=== PATIENT | female | born 1995 | race Caucasian/White ===

== ENCOUNTER → 2022-08-11 | Outpatient (CLI) | payer OTHER ==
--- NOTE | 2022-08-11 14:44 | Diagnostic Imaging Report ---
INDICATION: survey. TECHNIQUE: Multiple real-time grayscale images were obtained over the gravid uterus. COMPARISON: None FINDINGS: There is a single live fetus in a transverse presentation with the head to the maternal right. heart rate was recorded at 146 bpm. Placenta is anterior. No previa is detected. Amniotic fluid volume is 15.1 cm. Cervical length is 4.7 cm. kidneys, bladder and stomach are unremarkable. brain is unremarkable. There is a four-chamber heart. There is a three-vessel cord with normal insertion. spine is unremarkable. Biometrical measurements are as follows: Biparietal 4.84 cm, age 20 weeks 5 days. Head circumference 18.48 cm, age 20 weeks 6 days. Abdominal circumference 15.84 cm, age 21 weeks 0 days. Femur length 3.45 cm, age 21 weeks 0 days. Sonographic estimate age: 21 weeks 0 days. Sonographic estimated date of delivery: 12/22/2022. Estimated Weight: 385 gm (+/- 56 gm). LMP percentile: 47%. heart rate: 146 beats per minute. number: 1 of 1. IMPRESSION: Single live IUP 21 weeks 0 days gestational age. Estimated date of confinement sonographically is 12/22/2022. Dictated by: Dictated on workstation # [id number]
== END ==
LOC: RAD 12:35
PROVIDERS: ATTEND Nurse Practitioner Women's Health
DX: Z34.02 Encounter for supervision of normal first pregnancy, second trimester (principal); Z3A.21 21 weeks gestation of pregnancy
CPT/HCPCS: 76805

== ENCOUNTER 2022-12-24 04:01 | Inpatient (IN) | payer OTHER ==
[2022-12-24] VITALS (90 sets, daily range): BP systolic 108–147; BP diastolic 57–94
[~2022-12-24] VITALS: Ht 165.1 cm; Wt 76.0 kg
[2022-12-24] MEDS ORDERED: LACTATED RINGERS 1,000 ML 500 ML IV PRN (06:15)
[2022-12-24] MEDS ORDERED: MINERAL OIL 30 ML UDC TOP PRN (06:15)
[2022-12-24 07:03] LABS: BASOPHILS # (AUTO) 0.1 10^3/uL (0.0-0.1); BASOPHILS % (AUTO) 1 % (0-10); EOSINOPHILS % (AUTO) 0 % (0-10); HEMATOCRIT 34 % (35-52); HEMOGLOBIN 11.3 g/dL (11.5-16.0); LYMPHOCYTES # (AUTO) 1.6 10^3/uL (1.0-4.0); LYMPHOCYTES % (AUTO) 13 % (12-44); MEAN CORPUSCULAR HEMOGLOBIN 28 pg (25-34); MEAN CORPUSCULAR HGB CONC 33 g/dL (32-36); MEAN CORPUSCULAR VOLUME 83 fL (80-99); MEAN PLATELET VOLUME 10.3 fL (9.0-12.2); MONOCYTES # (AUTO) 0.9 10^3/uL (0.0-1.0); MONOCYTES % (AUTO) 7 % (0-12); NEUTROPHILS # (AUTO) 9.4 10^3/uL (1.8-7.8); NEUTROPHILS % (AUTO) 79 % (42-75); PLATELET COUNT 263 10^3/uL (130-400)
[2022-12-24] MEDS: LACTATED RINGERS 1,000 ML 1,000 ML IV SCH ×3 (07:04→22:54)
[2022-12-24] MEDS ORDERED: fentaNYL 2 mcg/ml BUPIVA 0.125 100 ML ONE (07:13)
[2022-12-24] MEDS ORDERED: fentaNYL INJECTION 100 MCG/2 ML VIAL ONE (07:46)
[2022-12-24] MEDS: fentaNYL 2 mcg/ml BUPIVA 0.125 100 ML EPI SCH ×3 (08:05→22:09)
[2022-12-24] MEDS ORDERED: METOCLOPRAMIDE INJ 10 MG/2 ML IV PRN (08:30)
[2022-12-24] MEDS ORDERED: diphenhydrAMINE INJ 50 MG/ML VIAL IV PRN (08:30)
[2022-12-24] MEDS ORDERED: NALOXONE 0.4 MG/ML 1 ML VIAL IV PRN ×2 (08:30)
[2022-12-24] MEDS ORDERED: LACTATED RINGERS 1,000 ML 1,000 ML IV SCH (08:30)
--- NOTE | 2022-12-24 09:22 | History & Physical-OB ---
OB - Chief Complaint & HPI Date/Time Date of Admission: Date of Admission: Dec 24, 2022 at 05:22 Date seen by a Provider: Dec 24, 2022 Time Seen by a Provider: 08:00 Chief Complaint/History OB-Reason for Admission/Chief: Onset of Labor Hx : 1 Hx Para: 0 Expected Date of Delivery: Dec 23, 2022 Gestational Age in Weeks: 40 Gestational Age in Days: 1 Allergies and Home Medications Allergies Coded Allergies: Penicillins (Verified Allergy, Unknown, 12/24/22) Patient Home Medication List Home Medication List Reviewed: Yes OB - History Hx of Present Care: Yes Obstetrical Complications: None Medical Complications: None Information Induced Hypertension: No Maternal Gestational Diabetes: No Obstetrical History Hx : 1 Hx Para: 0 Patient Past Medical History Neg Neg Social History/Family History Alcohol Use: Denies Use Recreational Drug Use: No 2nd Hand Smoke Exposure: No Immunizations Influenza Vaccine Up-to-Date: No; Not Current COVID19 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[employer] Hepatitis A: Yes Hepatitis B: Yes OB - Admission Exam Physical Exam Vitals: Vital Signs 12/24/22 12/24/22 06:05 08:20 Temp 36.8 Pulse 89 Resp 18 B/P (MAP) 122/75 (91) Pulse Ox 97 O2 Delivery Room Air HEENT: NCAT Heart: Rhythm Normal Lungs: Clear Abdomen: Gravid Extremities: Normal Reflexes: Normal Cervical Dilatation: 5cm Effacement: 75% Station: -3 Membranes: Intact Heart Rate: 130's Accelerations: Accelerations Present Decelerations: Variable Decelerations Short Term Variability: Present Long-Term Variability: Average (6-25) Contractions on Admission: < 5 Minutes Apart Intensity: Firm Labs Laboratory Tests Test 12/24/22 06:48 Range/Units White Blood Count 12.0 H 4.3-11.0 10^3/uL Red Blood Count 4.11 3.80-5.11 10^6/uL Hemoglobin 11.3 L 11.5-16.0 g/dL Hematocrit 34 L 35-52 % Mean Corpuscular Volume 83 80-99 fL Mean Corpuscular Hemoglobin 28 25-34 pg Mean Corpuscular Hemoglobin Concent 33 32-36 g/dL Red Cell Distribution Width 12.6 10.0-14.5 % Platelet Count 263 130-400 10^3/uL Mean Platelet Volume 10.3 9.0-12.2 fL Immature Granulocyte % (Auto) 1 % Neutrophils (%) (Auto) 79 H 42-75 % Lymphocytes (%) (Auto) 13 12-44 % Monocytes (%) (Auto) 7 0-12 % Eosinophils (%) (Auto) 0 0-10 % Basophils (%) (Auto) 1 0-10 % Neutrophils # (Auto) 9.4 H 1.8-7.8 10^3/uL Lymphocytes # (Auto) 1.6 1.0-4.0 10^3/uL Monocytes # (Auto) 0.9 0.0-1.0 10^3/uL Eosinophils # (Auto) 0.0 0.0-0.3 10^3/uL Basophils # (Auto) 0.1 0.0-0.1 10^3/uL Immature Granulocyte # (Auto) 0.1 0.0-0.1 10^3/uL Syphilis Total Antibody Negative Negative OB - Assessment/Plan/Diagnosis Assessment Assessment: active labor Admission Dx IUP at 40w1d. GBS neg. Admission Status: Inpatient Order (span 2 midnights) Reason for Inpatient Admission: IUP at 40w1d. GBS neg. Plan Plan: Expectant Management SHELBY CABRAL DO Dec 24, 2022 09:22
[2022-12-24] MEDS: CATHETER FLUSH 10 ML SYR IV SCH ×2 (14:00→21:24)
[2022-12-24] MEDS ORDERED: ACETAMINOPHEN 500 MG TABLET PO ONE (18:15)
[2022-12-24] MEDS ORDERED: ACETAMINOPHEN 500 MG TABLET ONE (18:57)
[2022-12-24] MEDS: ONDANSETRON INJECTION 4 MG/2 ML (SDV) IV PRN ×2 (19:03→22:56)
[2022-12-24] MEDS ORDERED: OXYTOCIN DRIP PRE-MIX 500 ML IV ONE (19:14)
[2022-12-24] MEDS: OXYTOCIN DRIP PRE-MIX 500 ML IV SCH (19:18)
--- NOTE | 2022-12-24 19:26 | Labor Progress Note ---
Labor Progress Note Labor Progress Note Time Seen by Provider: 19:00 Subjective: Pt comfortable with epidural in place. +Nausea - RN just gave Zofran. SROM around 15:00. Mild Temp earlier - Tylenol po ordered - will hold until nausea improves. Will give IV if need be. Objective: Cervical exam: Presentation: vertex heart tones: Cat 1 with occasional variable decel. Tocometer: 4 ctx/10 minutes. IUPC placed and she has <200MVUs. Assessment/Plan: Minimal progress throughout the day. +SROM a few hours ago. She declined AROM and Pitocin earlier. She is agreeable to Pitocin now since the MVUs are not adequate. She has a prominate pubic bone, which may make it difficult for the head to descend. This was discussed with the patient and her partner. Anticipate vaginal delivery. Vitals - Labs Vital Signs - I&O Vital Signs Date Time Temp Pulse Resp B/P (MAP) Pulse Ox O2 Delivery O2 Flow Rate FiO2 12/24/22 18:20 137 18 109/63 (78) 95 Room Air 12/24/22 18:07 112 18 110/71 (84) 96 Room Air 12/24/22 17:50 87 18 120/76 (91) 95 Room Air 12/24/22 17:34 97 18 111/67 (82) 94 Room Air 12/24/22 17:19 94 18 115/72 (86) 97 Room Air 12/24/22 17:04 101 18 127/92 (104) 96 Room Air 12/24/22 16:57 37.9 12/24/22 16:50 100 18 125/87 (100) 98 Room Air 12/24/22 16:35 95 18 118/87 (97) 97 Room Air 12/24/22 16:20 101 18 124/72 (89) 98 Room Air 12/24/22 16:05 87 18 131/79 (96) 98 Room Air 12/24/22 15:50 81 18 115/84 (94) 98 Room Air 12/24/22 15:34 105 18 113/74 (87) 97 Room Air 12/24/22 15:20 96 18 122/80 (94) 97 Room Air 12/24/22 15:06 82 18 114/79 (91) 98 Room Air 12/24/22 15:01 37.5 12/24/22 14:50 86 18 120/74 (89) 98 Room Air 12/24/22 14:34 92 18 118/75 (89) 98 Room Air 12/24/22 14:20 90 18 108/61 (77) 98 Room Air 12/24/22 14:04 100 18 112/66 (81) 98 Room Air 12/24/22 13:50 105 18 117/74 (88) 98 Room Air 12/24/22 13:34 90 18 109/70 (83) 98 Room Air 12/24/22 13:20 112 18 128/77 (94) 98 Room Air 12/24/22 13:04 94 18 117/77 (90) 97 Room Air 12/24/22 12:49 89 18 118/77 (91) 97 Room Air 12/24/22 12:35 92 18 118/78 (91) 98 Room Air 12/24/22 12:20 84 18 119/81 (94) 98 Room Air 12/24/22 12:07 37.4 12/24/22 12:05 115 18 118/78 (91) 98 Room Air 12/24/22 11:49 100 18 118/81 (93) 97 Room Air 12/24/22 11:34 88 18 124/78 (93) 98 Room Air 12/24/22 11:20 104 18 117/81 (93) 98 Room Air 12/24/22 11:07 86 18 110/78 (89) 97 Room Air 12/24/22 10:58 37.6 12/24/22 10:51 100 18 117/78 (91) 96 Room Air 12/24/22 10:36 89 18 109/69 (82) 98 Room Air 12/24/22 10:20 83 18 108/57 (74) 96 Room Air 12/24/22 10:04 86 18 114/66 (82) 96 Room Air 12/24/22 09:35 84 18 117/73 (88) 96 Room Air 12/24/22 09:21 120 18 124/83 (97) 94 Room Air 12/24/22 09:15 37.6 12/24/22 09:05 79 18 120/79 (93) 98 Room Air 12/24/22 08:50 72 18 131/80 (97) 98 Room Air 12/24/22 08:34 93 18 136/77 (96) 99 Room Air 12/24/22 08:30 134 18 147/92 (110) 98 Room Air 12/24/22 08:20 89 18 122/75 (91) 97 Room Air 12/24/22 08:14 100 18 109/73 (85) 99 Room Air 12/24/22 08:11 105 18 115/74 (88) Room Air 12/24/22 08:08 102 18 114/74 (87) 98 Room Air 12/24/22 08:05 93 20 119/79 (92) 99 Room Air 12/24/22 08:02 107 20 119/81 (94) 99 Room Air 12/24/22 07:59 75 20 119/81 (94) 99 Room Air 12/24/22 07:56 86 20 121/87 (98) 99 Room Air 12/24/22 07:53 94 20 130/92 (105) 99 Room Air 12/24/22 07:47 72 20 137/83 (101) Room Air 12/24/22 07:28 69 20 125/64 (84) Room Air 12/24/22 07:06 67 20 129/87 (101) Room Air 12/24/22 06:45 73 16 129/84 (99) Room Air 12/24/22 06:25 88 16 119/81 (94) Room Air 12/24/22 06:05 36.8 102 16 118/82 (94) Room Air 12/24/22 05:45 90 16 111/80 (90) Room Air 12/24/22 05:25 94 16 119/82 (94) Room Air 12/24/22 05:05 104 16 112/82 (92) Room Air 12/24/22 04:37 36.9 117 18 125/72 97 Room Air Labs Laboratory Tests 12/24/22 06:48: White Blood Count 12.0H, Red Blood Count 4.11, Hemoglobin 11.3L, Hematocrit 34L, Mean Corpuscular Volume 83, Mean Corpuscular Hemoglobin 28, Mean Corpuscular Hemoglobin Concent 33, Red Cell Distribution Width 12.6, Platelet Count 263, Mean Platelet Volume 10.3, Immature Granulocyte % (Auto) 1, Neutrophils (%) (Auto) 79H, Lymphocytes (%) (Auto) 13, Monocytes (%) (Auto) 7, Eosinophils (%) (Auto) 0, Basophils (%) (Auto) 1, Neutrophils # (Auto) 9.4H, Lymphocytes # (Auto) 1.6, Monocytes # (Auto) 0.9, Eosinophils # (Auto) 0.0, Basophils # (Auto) 0.1, Immature Granulocyte # (Auto) 0.1, Syphilis Total Antibody Negative SHELBY CABRAL DO Dec 24, 2022 19:25
--- NOTE | 2022-12-24 23:27 | Labor Progress Note ---
Labor Progress Note Labor Progress Note Time Seen by Provider: 23:15 Subjective: Pt in pain and vomiting. Objective: Cervical exam: heart tones: Cat 1 Tocometer: 4 ctx/10 minutes. Not quite 200MVUs. Pitocin at 14mU. Assessment/Plan: Continue increasing Pitocin as tolerated. Epidural bolus prn. Zoftan IV given. Anticipate vaginal delivery. Vitals - Labs Vital Signs - I&O Vital Signs Date Time Temp Pulse Resp B/P (MAP) Pulse Ox O2 Delivery O2 Flow Rate FiO2 12/24/22 21:30 98 18 129/92 (104) 99 Room Air 12/24/22 21:15 37.0 81 18 135/88 (104) 98 Room Air 12/24/22 21:00 81 18 124/79 (94) 99 Room Air 12/24/22 20:45 88 18 118/76 (90) 93 Room Air 12/24/22 20:30 98 18 127/93 (104) 100 Room Air 12/24/22 20:15 93 18 128/82 (97) 100 Room Air 12/24/22 20:05 101 18 127/86 (100) 99 Room Air 12/24/22 20:02 96 18 129/87 (101) 99 Room Air 12/24/22 19:57 86 18 119/75 (90) 98 Room Air 12/24/22 19:53 99 18 123/81 (95) 99 Room Air 12/24/22 19:47 84 18 123/81 (95) 98 Room Air 12/24/22 19:43 97 18 115/74 (88) 97 Room Air 12/24/22 19:38 82 18 121/86 (98) 98 Room Air 12/24/22 19:28 36.8 109 18 115/79 (91) 97 Room Air 12/24/22 19:06 104 18 136/82 (100) 98 Room Air 12/24/22 18:50 75 18 114/72 (86) 97 Room Air 12/24/22 18:36 75 18 121/79 (93) 96 Room Air 12/24/22 18:20 137 18 109/63 (78) 95 Room Air 12/24/22 18:07 112 18 110/71 (84) 96 Room Air 12/24/22 17:50 87 18 120/76 (91) 95 Room Air 12/24/22 17:34 97 18 111/67 (82) 94 Room Air 12/24/22 17:19 94 18 115/72 (86) 97 Room Air 12/24/22 17:04 101 18 127/92 (104) 96 Room Air 12/24/22 16:57 37.9 12/24/22 16:50 100 18 125/87 (100) 98 Room Air 12/24/22 16:35 95 18 118/87 (97) 97 Room Air 12/24/22 16:20 101 18 124/72 (89) 98 Room Air 12/24/22 16:05 87 18 131/79 (96) 98 Room Air 12/24/22 15:50 81 18 115/84 (94) 98 Room Air 12/24/22 15:34 105 18 113/74 (87) 97 Room Air 12/24/22 15:20 96 18 122/80 (94) 97 Room Air 12/24/22 15:06 82 18 114/79 (91) 98 Room Air 12/24/22 15:01 37.5 12/24/22 14:50 86 18 120/74 (89) 98 Room Air 12/24/22 14:34 92 18 118/75 (89) 98 Room Air 12/24/22 14:20 90 18 108/61 (77) 98 Room Air 12/24/22 14:04 100 18 112/66 (81) 98 Room Air 12/24/22 13:50 105 18 117/74 (88) 98 Room Air 12/24/22 13:34 90 18 109/70 (83) 98 Room Air 12/24/22 13:20 112 18 128/77 (94) 98 Room Air 12/24/22 13:04 94 18 117/77 (90) 97 Room Air 12/24/22 12:49 89 18 118/77 (91) 97 Room Air 12/24/22 12:35 92 18 118/78 (91) 98 Room Air 12/24/22 12:20 84 18 119/81 (94) 98 Room Air 12/24/22 12:07 37.4 12/24/22 12:05 115 18 118/78 (91) 98 Room Air 12/24/22 11:49 100 18 118/81 (93) 97 Room Air 12/24/22 11:34 88 18 124/78 (93) 98 Room Air 12/24/22 11:20 104 18 117/81 (93) 98 Room Air 12/24/22 11:07 86 18 110/78 (89) 97 Room Air 12/24/22 10:58 37.6 12/24/22 10:51 100 18 117/78 (91) 96 Room Air 12/24/22 10:36 89 18 109/69 (82) 98 Room Air 12/24/22 10:20 83 18 108/57 (74) 96 Room Air 12/24/22 10:04 86 18 114/66 (82) 96 Room Air 12/24/22 09:35 84 18 117/73 (88) 96 Room Air 12/24/22 09:21 120 18 124/83 (97) 94 Room Air 12/24/22 09:15 37.6 12/24/22 09:05 79 18 120/79 (93) 98 Room Air 12/24/22 08:50 72 18 131/80 (97) 98 Room Air 12/24/22 08:34 93 18 136/77 (96) 99 Room Air 12/24/22 08:30 134 18 147/92 (110) 98 Room Air 12/24/22 08:20 89 18 122/75 (91) 97 Room Air 12/24/22 08:14 100 18 109/73 (85) 99 Room Air 12/24/22 08:11 105 18 115/74 (88) Room Air 12/24/22 08:08 102 18 114/74 (87) 98 Room Air 12/24/22 08:05 93 20 119/79 (92) 99 Room Air 12/24/22 08:02 107 20 119/81 (94) 99 Room Air 12/24/22 07:59 75 20 119/81 (94) 99 Room Air 12/24/22 07:56 86 20 121/87 (98) 99 Room Air 12/24/22 07:53 94 20 130/92 (105) 99 Room Air 12/24/22 07:47 72 20 137/83 (101) Room Air 12/24/22 07:28 69 20 125/64 (84) Room Air 12/24/22 07:06 67 20 129/87 (101) Room Air 12/24/22 06:45 73 16 129/84 (99) Room Air 12/24/22 06:25 88 16 119/81 (94) Room Air 12/24/22 06:05 36.8 102 16 118/82 (94) Room Air 12/24/22 05:45 90 16 111/80 (90) Room Air 12/24/22 05:25 94 16 119/82 (94) Room Air 12/24/22 05:05 104 16 112/82 (92) Room Air 12/24/22 04:37 36.9 117 18 125/72 97 Room Air Labs Laboratory Tests 12/24/22 06:48: White Blood Count 12.0H, Red Blood Count 4.11, Hemoglobin 11.3L, Hematocrit 34L, Mean Corpuscular Volume 83, Mean Corpuscular Hemoglobin 28, Mean Corpuscular Hemoglobin Concent 33, Red Cell Distribution Width 12.6, Platelet Count 263, Mean Platelet Volume 10.3, Immature Granulocyte % (Auto) 1, Neutrophils (%) (Auto) 79H, Lymphocytes (%) (Auto) 13, Monocytes (%) (Auto) 7, Eosinophils (%) (Auto) 0, Basophils (%) (Auto) 1, Neutrophils # (Auto) 9.4H, Lymphocytes # (Auto) 1.6, Monocytes # (Auto) 0.9, Eosinophils # (Auto) 0.0, Basophils # (Auto) 0.1, Immature Granulocyte # (Auto) 0.1, Syphilis Total Antibody Negative SHELBY CABRAL DO Dec 24, 2022 23:27
[2022-12-25] VITALS (29 sets, daily range): BP systolic 106–140; BP diastolic 55–97
[2022-12-25] MEDS ORDERED: LIDOCAINE 2% w/EPI 1:200,000 20 ML VIAL ONE (01:08)
[2022-12-25] MEDS: OXYTOCIN DRIP PRE-MIX 500 ML IV SCH ×3 (01:51→02:16)
[2022-12-25] MEDS ORDERED: DIBUCAINE 1% OINTMENT 28 GM TUBE TOP PRN (03:00)
[2022-12-25] MEDS ORDERED: WITCH HAZEL(TUCKS) 40 EA JAR TOP PRN (03:00)
[2022-12-25] MEDS ORDERED: Tetanus/Diphtheria/Pertussis (Acell) ADULT Vaccine 0.5 ML IM ONE (03:00)
[2022-12-25] MEDS ORDERED: BENZOCAINE/MENTHOL (DERMOPLAST) 56 ML CAN TP PRN (03:00)
--- NOTE | 2022-12-25 03:30 | OB Labor & Delivery Record ---
Vag Delivery Note Vag Delivery Note Date of Delivery: 12/25/22 Preoperative Diagnosis: Caitlyn Dunn is a (27 /Para 1 / 0, Gestational Age (wks)40 Postoperative Diagnosis: Same Surgeon: HAY NGUYEN Rand Cementer: Dr. Epperson Anesthesia: Epidural Delivery Type: Spontaneous vaginal Findings: Viable female infant, apgars 2, 7, 8, weight 3715g Lacerations: 2nd degree with vaginal extension Intact placenta with 3 vessel cord. No nuchal cord, body cord or shoulder dystocia Estimated Blood Loss: 200 ml Complications: None Condition: Stable Description of Procedure: The patient is a 27 year old female who presented in spontaneous labor. She was admitted and informed consent was obtained. Her labor course was unremarkable. She progressed to complete dilatation and began to push. She was then set up for delivery. The infant's head was delivered atraumatically in the KATELYN position. The shoulders and remainder of the 's body were then delivered without difficulty. Upon delivery, the infant was vigorous and placed on maternal chest and the mouth and nares were bulb suctioned. After a delay cord was doubly clamped and cut and the remained on maternal chest. An intact placenta with 3-vessel cord delivered via Marianne and there was found to be minimal bleeding.~ Vigorous fundal massage was performed and the fundus was found to be firm. IV oxytocin was given. Examination of the vagina and perineum revealed a 2nd degree laceration repaired in the usual fashion with 3-0 vicryl rapide suture. Following the repair, sponge, instrument and needle counts were correct. Mom and baby were both in stable condition in the labor suite. Vitals - Labs Vital Signs - I&O Vital Signs Date Time Temp Pulse Resp B/P (MAP) Pulse Ox O2 Delivery O2 Flow Rate FiO2 12/25/22 00:29 38.4 12/25/22 00:00 79 18 127/76 (93) 98 Room Air 12/24/22 23:55 74 18 126/77 (93) 99 Room Air 12/24/22 23:50 100 18 135/79 (97) 99 Room Air 12/24/22 23:45 86 18 132/89 (103) 99 Room Air 12/24/22 23:40 80 18 121/72 (88) 99 Room Air 12/24/22 23:35 84 18 119/74 (89) 99 Room Air 12/24/22 23:30 100 18 123/84 (97) 99 Room Air 12/24/22 23:27 37.3 106 18 123/84 (97) 99 Room Air 12/24/22 23:15 86 18 141/94 (110) 99 Room Air 12/24/22 23:00 96 18 129/84 (99) 99 Room Air 12/24/22 22:45 97 18 129/84 (99) 98 Room Air 12/24/22 22:30 106 18 134/93 (107) 97 Room Air 12/24/22 22:15 95 18 133/89 (104) 96 Room Air 12/24/22 22:00 84 18 128/89 (102) 97 Room Air 12/24/22 21:45 94 18 135/92 (106) 97 Room Air 12/24/22 21:30 98 18 129/92 (104) 99 Room Air 12/24/22 21:15 37.0 81 18 135/88 (104) 98 Room Air 12/24/22 21:00 81 18 124/79 (94) 99 Room Air 12/24/22 20:45 88 18 118/76 (90) 93 Room Air 12/24/22 20:30 98 18 127/93 (104) 100 Room Air 12/24/22 20:15 93 18 128/82 (97) 100 Room Air 12/24/22 20:05 101 18 127/86 (100) 99 Room Air 12/24/22 20:02 96 18 129/87 (101) 99 Room Air 12/24/22 19:57 86 18 119/75 (90) 98 Room Air 12/24/22 19:53 99 18 123/81 (95) 99 Room Air 12/24/22 19:47 84 18 123/81 (95) 98 Room Air 12/24/22 19:43 97 18 115/74 (88) 97 Room Air 12/24/22 19:38 82 18 121/86 (98) 98 Room Air 12/24/22 19:28 36.8 109 18 115/79 (91) 97 Room Air 12/24/22 19:06 104 18 136/82 (100) 98 Room Air 12/24/22 18:50 75 18 114/72 (86) 97 Room Air 12/24/22 18:36 75 18 121/79 (93) 96 Room Air 12/24/22 18:20 137 18 109/63 (78) 95 Room Air 12/24/22 18:07 112 18 110/71 (84) 96 Room Air 12/24/22 17:50 87 18 120/76 (91) 95 Room Air 12/24/22 17:34 97 18 111/67 (82) 94 Room Air 12/24/22 17:19 94 18 115/72 (86) 97 Room Air 12/24/22 17:04 101 18 127/92 (104) 96 Room Air 12/24/22 16:57 37.9 12/24/22 16:50 100 18 125/87 (100) 98 Room Air 12/24/22 16:35 95 18 118/87 (97) 97 Room Air 12/24/22 16:20 101 18 124/72 (89) 98 Room Air 12/24/22 16:05 87 18 131/79 (96) 98 Room Air 12/24/22 15:50 81 18 115/84 (94) 98 Room Air 12/24/22 15:34 105 18 113/74 (87) 97 Room Air 12/24/22 15:20 96 18 122/80 (94) 97 Room Air 12/24/22 15:06 82 18 114/79 (91) 98 Room Air 12/24/22 15:01 37.5 12/24/22 14:50 86 18 120/74 (89) 98 Room Air 12/24/22 14:34 92 18 118/75 (89) 98 Room Air 12/24/22 14:20 90 18 108/61 (77) 98 Room Air 12/24/22 14:04 100 18 112/66 (81) 98 Room Air 12/24/22 13:50 105 18 117/74 (88) 98 Room Air 12/24/22 13:34 90 18 109/70 (83) 98 Room Air 12/24/22 13:20 112 18 128/77 (94) 98 Room Air 12/24/22 13:04 94 18 117/77 (90) 97 Room Air 12/24/22 12:49 89 18 118/77 (91) 97 Room Air 12/24/22 12:35 92 18 118/78 (91) 98 Room Air 12/24/22 12:20 84 18 119/81 (94) 98 Room Air 12/24/22 12:07 37.4 12/24/22 12:05 115 18 118/78 (91) 98 Room Air 12/24/22 11:49 100 18 118/81 (93) 97 Room Air 12/24/22 11:34 88 18 124/78 (93) 98 Room Air 12/24/22 11:20 104 18 117/81 (93) 98 Room Air 12/24/22 11:07 86 18 110/78 (89) 97 Room Air 12/24/22 10:58 37.6 12/24/22 10:51 100 18 117/78 (91) 96 Room Air 12/24/22 10:36 89 18 109/69 (82) 98 Room Air 12/24/22 10:20 83 18 108/57 (74) 96 Room Air 12/24/22 10:04 86 18 114/66 (82) 96 Room Air 12/24/22 09:35 84 18 117/73 (88) 96 Room Air 12/24/22 09:21 120 18 124/83 (97) 94 Room Air 12/24/22 09:15 37.6 12/24/22 09:05 79 18 120/79 (93) 98 Room Air 12/24/22 08:50 72 18 131/80 (97) 98 Room Air 12/24/22 08:34 93 18 136/77 (96) 99 Room Air 12/24/22 08:30 134 18 147/92 (110) 98 Room Air 12/24/22 08:20 89 18 122/75 (91) 97 Room Air 12/24/22 08:14 100 18 109/73 (85) 99 Room Air 12/24/22 08:11 105 18 115/74 (88) Room Air 12/24/22 08:08 102 18 114/74 (87) 98 Room Air 12/24/22 08:05 93 20 119/79 (92) 99 Room Air 12/24/22 08:02 107 20 119/81 (94) 99 Room Air 12/24/22 07:59 75 20 119/81 (94) 99 Room Air 12/24/22 07:56 86 20 121/87 (98) 99 Room Air 12/24/22 07:53 94 20 130/92 (105) 99 Room Air 12/24/22 07:47 72 20 137/83 (101) Room Air 12/24/22 07:28 69 20 125/64 (84) Room Air 12/24/22 07:06 67 20 129/87 (101) Room Air 12/24/22 06:45 73 16 129/84 (99) Room Air 12/24/22 06:25 88 16 119/81 (94) Room Air 12/24/22 06:05 36.8 102 16 118/82 (94) Room Air 12/24/22 05:45 90 16 111/80 (90) Room Air 12/24/22 05:25 94 16 119/82 (94) Room Air 12/24/22 05:05 104 16 112/82 (92) Room Air 12/24/22 04:37 36.9 117 18 125/72 97 Room Air I & O 12/25/22 07:00 Intake Total 3100 ml Balance 3100 ml Labs Laboratory Tests 12/24/22 06:48: White Blood Count 12.0H, Red Blood Count 4.11, Hemoglobin 11.3L, Hematocrit 34L, Mean Corpuscular Volume 83, Mean Corpuscular Hemoglobin 28, Mean Corpuscular Hemoglobin Concent 33, Red Cell Distribution Width 12.6, Platelet Count 263, Mean Platelet Volume 10.3, Immature Granulocyte % (Auto) 1, Neutrophils (%) (Auto) 79H, Lymphocytes (%) (Auto) 13, Monocytes (%) (Auto) 7, Eosinophils (%) (Auto) 0, Basophils (%) (Auto) 1, Neutrophils # (Auto) 9.4H, Lymphocytes # (Auto) 1.6, Monocytes # (Auto) 0.9, Eosinophils # (Auto) 0.0, Basophils # (Auto) 0.1, Immature Granulocyte # (Auto) 0.1, Syphilis Total Antibody Negative HAY NGUYEN MD Dec 25, 2022 03:30
[2022-12-25] MEDS: IBUPROFEN 600 MG TABLET PO SCH ×3 (03:52→19:53)
[2022-12-25] MEDS: ACETAMINOPHEN 500 MG TABLET PO SCH ×4 (03:52→19:57)
[2022-12-25] MEDS: CATHETER FLUSH 10 ML SYR IV SCH ×2 (06:00→14:00)
--- NOTE | 2022-12-25 07:29 | Anesthesia-Regional Post-Op ---
Regional Patient Condition Mental Status: Alert, Oriented x3 Circulation: Same as Pre-Op Headache: Absent Sensation: Full Recovery Motor Block: Absent Post Op Complications Complications None Follow Up Care/Instructions Patient Instructions None needed. Anesthesia/Patient Condition Patient is doing well, no complaints, stable vital signs, no apparent adverse anesthesia problems. No complications reported per nursing. JACOBO CARTER CRNA Dec 25, 2022 07:29
[2022-12-25] MEDS: PRENATAL VITAMIN TABLET PO SCH (08:30)
[2022-12-25] MEDS: DOCUSATE SODIUM 100 MG CAPSULE PO SCH ×2 (08:31→19:53)
[2022-12-25] MEDS: fentaNYL 2 mcg/ml BUPIVA 0.125 100 ML EPI SCH ×2 (13:13→13:15)
[2022-12-25] MEDS: oxyCODONE IMMEDIATE RELEASE 5 MG TABLET PO PRN (16:15)
[2022-12-26] MEDS: IBUPROFEN 600 MG TABLET PO SCH ×5 (01:48→20:23)
[2022-12-26 02:09] VITALS: BP 114/78
[2022-12-26] MEDS: oxyCODONE IMMEDIATE RELEASE 5 MG TABLET PO PRN ×4 (02:09→20:46)
[2022-12-26] MEDS: ACETAMINOPHEN 500 MG TABLET PO SCH ×3 (03:52→20:22)
[2022-12-26 05:43] LABS: BASOPHILS # (AUTO) 0.1 10^3/uL (0.0-0.1); BASOPHILS % (AUTO) 1 % (0-10); EOSINOPHILS # (AUTO) 0.1 10^3/uL (0.0-0.3); EOSINOPHILS % (AUTO) 1 % (0-10); HEMATOCRIT 28 % (35-52); HEMOGLOBIN 9.4 g/dL (11.5-16.0); LYMPHOCYTES # (AUTO) 2.7 10^3/uL (1.0-4.0); LYMPHOCYTES % (AUTO) 14 % (12-44); MEAN CORPUSCULAR HEMOGLOBIN 28 pg (25-34); MEAN CORPUSCULAR HGB CONC 34 g/dL (32-36); MEAN CORPUSCULAR VOLUME 82 fL (80-99); MEAN PLATELET VOLUME 10.2 fL (9.0-12.2); MONOCYTES # (AUTO) 1.2 10^3/uL (0.0-1.0); MONOCYTES % (AUTO) 6 % (0-12); NEUTROPHILS # (AUTO) 15.1 10^3/uL (1.8-7.8); NEUTROPHILS % (AUTO) 78 % (42-75); PLATELET COUNT 250 10^3/uL (130-400); WHITE BLOOD COUNT 19.3 10^3/uL (4.3-11.0)
[2022-12-26] MEDS: CATHETER FLUSH 10 ML SYR IV SCH (06:59)
--- NOTE | 2022-12-26 07:27 | Postpartum Progress Note ---
Note Note Day # 1 Subjective: Patient is without complaints. Ambulating, voiding. Tolerating a regular diet without nausea or vomiting. Normal lochia. Pain is well controlled with oral pain medications. Objective: Physical Exam: General - Alert and oriented, no apparent distress Abdomen - Soft, appropriately tender to palpation, non-distended, fundus firm at umbilicus Extremities - no edema, negative Kaykay's bilaterally Assessment: PPD 1 NVD Acute blood loss anemia Plan: Routine care. Encourage breast feeding. Encourage ambulation. Ferrous sulfate supplementation. Plan for discharge pending release Vitals - Labs Vital Signs - I&O Vital Signs Date Time Temp Pulse Resp B/P (MAP) Pulse Ox O2 Delivery O2 Flow Rate FiO2 12/26/22 02:09 36.5 93 18 114/78 (90) 98 Room Air 12/25/22 22:25 36.4 92 18 120/72 (88) 97 Room Air 12/25/22 19:57 36.4 90 18 130/78 (95) 97 Room Air 12/25/22 16:00 36.6 99 18 134/88 (103) 98 Room Air 12/25/22 12:00 37.1 101 18 120/84 (96) 98 Room Air 12/25/22 08:00 36.5 102 18 106/68 (81) 98 Room Air Labs Laboratory Tests 12/26/22 05:21: White Blood Count 19.3H, Red Blood Count 3.35L, Hemoglobin 9.4L, Hematocrit 28L, Mean Corpuscular Volume 82, Mean Corpuscular Hemoglobin 28, Mean Corpuscular Hemoglobin Concent 34, Red Cell Distribution Width 13.1, Platelet Count 250, Mean Platelet Volume 10.2, Immature Granulocyte % (Auto) 1, Neutrophils (%) (Auto) 78H, Lymphocytes (%) (Auto) 14, Monocytes (%) (Auto) 6, Eosinophils (%) (Auto) 1, Basophils (%) (Auto) 1, Neutrophils # (Auto) 15.1H, Lymphocytes # (Auto) 2.7, Monocytes # (Auto) 1.2H, Eosinophils # (Auto) 0.1, Basophils # (Auto) 0.1, Immature Granulocyte # (Auto) 0.1 CHELSEA GONZÁLES DO Dec 26, 2022 07:27
[2022-12-26 08:00] VITALS: BP 112/75
[2022-12-26] MEDS: DOCUSATE SODIUM 100 MG CAPSULE PO SCH ×2 (08:25→20:23)
[2022-12-26] MEDS: PRENATAL VITAMIN TABLET PO SCH (08:25)
[2022-12-26 12:00] VITALS: BP 113/75
[2022-12-26 16:00] VITALS: BP 126/78
[2022-12-26 20:30] VITALS: BP 117/77
[2022-12-27] MEDS: IBUPROFEN 600 MG TABLET PO SCH ×3 (02:30→16:20)
[2022-12-27 02:32] VITALS: BP 118/77
[2022-12-27] MEDS: ACETAMINOPHEN 500 MG TABLET PO SCH ×2 (04:04→12:36)
[2022-12-27 08:45] VITALS: BP 120/71
[2022-12-27] MEDS: DOCUSATE SODIUM 100 MG CAPSULE PO SCH (08:46)
[2022-12-27] MEDS: oxyCODONE IMMEDIATE RELEASE 5 MG TABLET PO PRN ×2 (08:47→12:36)
[2022-12-27] MEDS: PRENATAL VITAMIN TABLET PO SCH (08:47)
--- NOTE | 2022-12-27 08:53 | Discharge Inst-Women's Service ---
Discharge Inst-Women's Serv Depart Medication/Instructions New, Converted or Re-Newed RX: Transmitted to Pharmacy Final Diagnosis PPD 2 NVD Problems Reviewed?: Yes Consults/Follow Up Additional Follow Up: Yes Orders/Referrals Dr. Gonzáles in 6 weeks Activity Activity: Activity as Tolerated Driving Instructions: No Driving for 1 Week NO SMOKING: NO SMOKING Nothing Inside Vagina: No Douching, No [place], No Tampons Diet Discharge Diet: No Restrictions Symptoms to Report to : Bleeding Excessive, Pain Increased, Fever Over 101 Degrees F, Vaginal Bleeding Increase, Questions/Concerns CHELSEA GONZÁLES DO Dec 27, 2022 08:53
[2022-12-27] MEDS ORDERED: DOCU100C37 PO (08:54)
[2022-12-27] MEDS ORDERED: DIBU30OI TOP (08:54)
[2022-12-27] MEDS ORDERED: ACET-93 PO (08:54)
[2022-12-27] MEDS ORDERED: BENZ78AE5 TP (08:54)
[2022-12-27] MEDS ORDERED: OXC5T PO (08:54)
[2022-12-27] MEDS ORDERED: IBUP-844 PO (08:54)
[2022-12-27 14:11] VITALS: BP 128/87
[2022-12-27 17:00] VITALS: BP 128/87
== END 2022-12-27 17:00 | disposition home or self-care (01) | DRG 806 ==
LOC: WSo 04:01 → LDRP 04:02 → WSo 05:21 → LDRP 05:22
PROVIDERS: ADMIT Obstetrics & Gynecology; ATTEND Obstetrics & Gynecology
PROC: 10E0XZZ Delivery of Products of Conception, External Approach (ICD-10-PCS; principal; 2022-12-25)
PROC: 0KQM0ZZ Repair Perineum Muscle, Open Approach (ICD-10-PCS; 2022-12-25)
DX: O48.0 Post-term pregnancy (principal); D62 Acute posthemorrhagic anemia; Z37.0 Single live birth; Z3A.40 40 weeks gestation of pregnancy; O70.1 Second degree perineal laceration during delivery; O90.81 Anemia of the puerperium
CPT/HCPCS: 36415; 85025; 86780; 86850; 86900; 86901; 99213